=== PATIENT | male | born 1950 | race Caucasian/White ===

== ENCOUNTER → 2017-05-14 | Outpatient (CLI) | payer OTHER, BC | LOC: BHFA 13:15 | PROVIDERS: ATTEND Internal Medicine Cardiovascular Disease | DX: I71.9 Aortic aneurysm of unspecified site, without rupture (principal) ==

== ENCOUNTER → 2017-06-02 | Outpatient (CLI) | payer OTHER, BC | LOC: BHLMT 16:00 | PROVIDERS: ATTEND Internal Medicine Cardiovascular Disease | DX: I49.3 Ventricular premature depolarization (principal) | CPT/HCPCS: 93225-PO; 93226-PO ==

== ENCOUNTER → 2018-06-29 | Outpatient (CLI) | payer OTHER, BC | LOC: BHFA 14:00 | PROVIDERS: ATTEND Internal Medicine Cardiovascular Disease | DX: I71.9 Aortic aneurysm of unspecified site, without rupture (principal) ==

== ENCOUNTER → 2018-11-18 | Outpatient (CLI) | payer OTHER | LOC: FIMAGING 13:15 | PROVIDERS: ATTEND Family Medicine Sports Medicine | DX: R14.0 Abdominal distension (gaseous) (principal); I71.2 Thoracic aortic aneurysm, without rupture ==

== ENCOUNTER → 2018-11-24 | Outpatient (CLI) | payer OTHER | LOC: FIMAGING 10:44 | PROVIDERS: ATTEND Family Medicine Sports Medicine | DX: I71.2 Thoracic aortic aneurysm, without rupture (principal); I25.10 Atherosclerotic heart disease of native coronary artery without angina pectoris; I15.9 Secondary hypertension, unspecified; I35.1 Nonrheumatic aortic (valve) insufficiency; K76.0 Fatty (change of) liver, not elsewhere classified; F41.9 Anxiety disorder, unspecified ==

== ENCOUNTER → 2019-03-03 | Outpatient (CLI) | payer OTHER | LOC: FIMAGING 12:10 ==